=== PATIENT | female | born 1985 ===

== ENCOUNTER 2017-09-29 21:52 | Observation (INO) | payer MEDICAID, OTHER ==
[2017-09-29] MEDS ORDERED: Sodium Chloride 0.9% 1,000 ML IV SCH (22:15)
--- NOTE | 2017-09-29 22:19 | ED PDOC ---
HPI:STROKE - Time Time: 22:15 - Historian Historian: Patient - Chief Complaint Chief Complaint: other (syncope) - Onset Date: 09/29/17 Time: 21:00 - Timing Timing: Resolved - TPA Positive for Contraindication: Yes Reason tPA is not being Administered: NIH 0; no focal deficit - Notes: Notes:: Pt. was doing well today and then got bad new about her sister and then had multiple syncope episodes at home in the last 1 hr. Pt. states she feels better currently. Has mild headache, not worst in her life. Also light-headed mild. No nausea, vomit, chest pain, dyspnea, weakness, leg pain, numbness, tingles. Has had multiple syncope episodes in the past and she gets better from it on her own. Her blood pressure is 90 systolic normally. Denies drugs or etoh. Not suicidal or homicidal. NIHSS Stroke Scale - Date/Time Evaluation Performed Date Performed: 09/29/17 Time Performed: 22:10 When Was NIHSS Performed: Baseline - How Severe is the Stroke Level of Consciousness: 0=Alert LOC to Questions: 0=Both comments correct LOC to commands: 0=Obeys both correctly Best Gaze: 0=Normal Visual: 0=No visual loss Facial: 0=Normal Motor Arm - Left: 0=No drift Motor Arm - Right: 0=No drift Motor Leg - Left: 0=No drift Motor Leg - Right: 0=No drift Limb Ataxia: 0=Absent Sensory: 0=Normal Best Language: 0=No aphasia Dysarthia: 0=Normal articulation Extinction & Inattention (Neglect): 0=Normal, no object Score: 0 rTPA Inclusion/Exclusion - Refusal of Treatment Patient Refused Treatment: No - Inclusion Criteria for Altepase Patient is 18 years or Older: Yes The Clinical Diagnosis of Ischemic Stroke That is Causing a Potentially Disabling Neurological Deficit: No Time of Onset is Well Established to be Less Than 270 Minute Before Treatment Would Begin: Yes Risk/Benefit Discussed With Patient/Family Member Present: No Past Medical History Reviewed: Historical Data, Nursing Documentation, Vital Signs Vital Signs: Last Vital Signs Temp 98.9 F 09/29/17 21:55 Pulse 105 H 09/29/17 21:55 Resp 17 09/29/17 21:55 BP 119/75 09/29/17 21:55 Pulse Ox 100 09/29/17 21:55 - Medical History Other PMH: syncope - Surgical History Surgical History: No Surg Hx - Family History Family History: States: Unknown Family Hx - Living Arrangements Living Arrangements: With Family - Social History Alcohol: None Drugs: Denies - Allergies Allergies/Adverse Reactions: Allergies Allergy/AdvReac Type Severity Reaction Status Date / Time No Known Allergies Allergy Verified 09/29/17 21:57 Review of Systems ROS Statement: Except As Marked, All Systems Reviewed And Found Negative Neurological: Positive for: Headache, Dizziness Physical Exam - Reviewed Nursing Documentation Reviewed: Yes Vital Signs Reviewed: Yes - Physical Exam Appears: Positive for: Non-toxic, No Acute Distress Head Exam: Positive for: ATRAUMATIC, NORMAL INSPECTION, NORMOCEPHALIC Skin: Positive for: Normal Color, Warm, DRY Eye Exam: Positive for: EOMI, Normal appearance, PERRL ENT: Positive for: Normal ENT Inspection Neck: Positive for: Normal, Painless ROM Cardiovascular/Chest: Positive for: Regular Rate, Rhythm Respiratory: Positive for: CNT, Normal Breath Sounds Gastrointestinal/Abdominal: Positive for: Normal Exam, Soft. Negative for: Tenderness Back: Positive for: Normal Inspection. Negative for: L CVA Tenderness, R CVA Tenderness Extremity: Positive for: Normal ROM. Negative for: Tenderness, Pedal Edema Neurologic/Psych: Positive for: Alert, supervisor plate forming II-XII, Oriented. Negative for: Motor/Sensory Deficits, Aphasia, Facial Droop - Laboratory Results Result Diagrams: 09/29/17 22:31 09/29/17 22:31 Interpretation Of Abn Labs: no acute - ECG ECG: Positive for: Interpreted By Me, Viewed By Me ECG Rhythm: Positive for: Normal QRS, Normal ST Segment, Sinus Rhythm O2 Sat by Pulse Oximetry: 100 Pulse Ox Interpretation: Normal - Radiology X-Ray: Read By Radiologist X-Ray Interpretation: No Acute Disease - CT Scan/US ct Other Rad Studies (CT/US): Read By Radiologist Other Rad Interpretation: no acute - Progress ED Course And Treament: 2221: Pt. had 2 witnessed syncope episodes lasting 5 seconds approximately and pt. turned around and states she was fine. 2338: Pt. stable. Dizziness on sitting up. Fine when laying down. Will need admit for further evaluation. 2345: Stable. Spoke with Don for Dr. Diaz. Will admit tele obs. Disposition - Clinical Impression Clinical Impression: Syncope - Patient ED Disposition Is Patient to be Admitted: Yes Counseled Patient/Family Regarding: Studies Performed, Diagnosis - Disposition Disposition Time: 23:45 Condition: FAIR - Pt Status Changed To: Hospital Disposition Of: Observation - POA Present On Arrival: None
[2017-09-29 22:45] LABS: BASO # 0.1 K/uL (0.0-0.2); BASO % 0.5 % (0.0-2.0); EOS % 0.3 % (0.0-4.0); HEMOGLOBIN 13.4 g/dL (12.0-16.0); LYMPH # 2.3 K/uL (1.0-4.3); MEAN CELL VOLUME 92.8 fl (81.0-99.0); MEAN CORPUSCULAR HEMOGLOBIN 31.8 pg (27.0-31.0); MEAN CORPUSCULAR HGB CONC 34.3 g/dL (33.0-37.0); MEAN PLATELET VOLUME 8.3 fl (7.2-11.7); MONO # 0.8 K/uL (0.0-0.8); NEUT # 7.9 K/uL (1.8-7.0); NEUT % 71.2 % (50.0-75.0); NRBC % 0.1 % (0.0-0.0); RBC 4.21 Mil/uL (3.80-5.20); RED CELL DISTRIBUTION WIDTH 13.5 % (11.5-14.5); WHITE BLOOD COUNT 11.1 K/uL (4.8-10.8)
[2017-09-29 22:49] LABS: INR 1.1 (0.9-1.2); PROTHROMBIN TIME 12.4 Seconds (9.8-13.1)
[2017-09-29 22:57] LABS: ALB/GLOB RATIO 1.4 (1.0-2.1); ALBUMIN 4.8 g/dL (3.5-5.0); ALT/SGPT 38 U/L (9-52); AST/SGOT 30 U/L (14-36); BLOOD UREA NITROGEN 10 mg/dl (7-17); CALCIUM 9.3 mg/dL (8.4-10.2); GFR AFRICAN-AMERICAN > 60; GFR NON-AFRICAN AMERICAN > 60; HDL CHOLESTEROL 43 MG/DL (30-70)
[2017-09-29 23:08] LABS: LDL CHOLESTEROL 110 mg/dL (0-129)
--- NOTE | 2017-09-29 23:19 | CT ---
EXAM: CT Head Without Intravenous Contrast EXAM DATE/TIME: 09/29/2017 10:14 PM CLINICAL HISTORY: 31 years old, female; Signs and symptoms; Syncope and collapse TECHNIQUE: Axial computed tomography images of the head/brain without intravenous contrast. All CT scans at this facility use one or more dose reduction techniques, viz.: automated exposure control; ma/kV adjustment per patient size (including targeted exams where dose is matched to indication; i.e. head); or iterative reconstruction technique. Coronal and sagittal reformatted images were created and reviewed. COMPARISON: No relevant prior studies available. FINDINGS: BRAIN: Punctate calcification in the left basal ganglia, most likely physiologic in nature. No significant acute abnormality identified. No acute hemorrhage seen within the brain. No acute extra-axial fluid collections visualized. No evidence of significant mass effect within the brain. Normal whelan-white matter differentiation. VENTRICLES: No evidence of significant hydrocephalus. BONES/JOINTS: No acute fractures or other acute bony abnormality noted. SOFT TISSUES: No acute abnormality of the visualized soft tissues is seen. SINUSES: Visualized paranasal sinuses appear clear. MASTOID AIR CELLS: Mastoid air cells appear clear. IMPRESSION: - No acute findings seen within the brain. - See above for remaining findings.
--- NOTE | 2017-09-30 08:00 | RAD ---
HISTORY: syncope eval COMPARISON: No prior. FINDINGS: LUNGS: No active pulmonary disease. PLEURA: No significant pleural effusion identified, no pneumothorax apparent. CARDIOVASCULAR: Normal. OSSEOUS STRUCTURES: No significant abnormalities. VISUALIZED UPPER ABDOMEN: Normal. OTHER FINDINGS: None. IMPRESSION: No active disease. Concordant results with the preliminary interpretation rendered by the emergency department physician procedure.
[2017-09-30 08:01] LABS: BASO % 0.5 % (0.0-2.0); EOS # 0.1 K/uL (0.0-0.7); EOS % 0.8 % (0.0-4.0); HEMOGLOBIN 12.7 g/dL (12.0-16.0); LYMPH # 2.8 K/uL (1.0-4.3); LYMPH % 34.3 % (20.0-40.0); MEAN CELL VOLUME 92.8 fl (81.0-99.0); MEAN CORPUSCULAR HEMOGLOBIN 31.9 pg (27.0-31.0); MEAN CORPUSCULAR HGB CONC 34.4 g/dL (33.0-37.0); MEAN PLATELET VOLUME 8.1 fl (7.2-11.7); MONO # 0.8 K/uL (0.0-0.8); MONO % 9.9 % (0.0-10.0); NEUT # 4.5 K/uL (1.8-7.0); NEUT % 54.5 % (50.0-75.0); NRBC % 0.1 % (0.0-0.0); RBC 3.97 Mil/uL (3.80-5.20); RED CELL DISTRIBUTION WIDTH 13.4 % (11.5-14.5); WHITE BLOOD COUNT 8.2 K/uL (4.8-10.8)
--- NOTE | 2017-09-30 08:18 | CP.PCM.HP ---
History of Present Illness - History of Present Illness History of Present Illness: pt admitted for recurrent syncope episodes. states has had these on/off since she was 17-18 y/o. had full workout previously. at present bw noted. no f/c, n/v/d. imaging noted Present on Admission - Present on Admission Any Indicators Present on Admission: No Review of Systems - Neurological Neurological: As Per HPI, Syncope Past Patient History - Past Medical History & Family History Past Medical History?: No - Past Social History Smoking Status: Never Smoked - NEUROLOGICAL Hx Migraine: Yes - HEMATOLOGICAL/ONCOLOGICAL Hx AIDS: No Hx Human Immunodeficiency Virus (HIV): No - MUSCULOSKELETAL/RHEUMATOLOGICAL Hx Falls: No - PSYCHIATRIC Hx Substance Use: No - SURGICAL HISTORY Hx Cholecystectomy: Yes (10 years ago) - ANESTHESIA Hx Anesthesia: Yes Hx Anesthesia Reactions: No Hx Malignant Hyperthermia: No Has any member of the family had a problem w/ anesthesia?: No Meds Allergies/Adverse Reactions: Allergies Allergy/AdvReac Type Severity Reaction Status Date / Time No Known Allergies Allergy Verified 09/29/17 21:57 Physical Exam - Constitutional Appears: Well, Non-toxic, No Acute Distress - Head Exam Head Exam: ATRAUMATIC, NORMAL INSPECTION, NORMOCEPHALIC - Eye Exam Eye Exam: EOMI, Normal appearance, PERRL Pupil Exam: NORMAL ACCOMODATION, PERRL - ENT Exam ENT Exam: Mucous Membranes Moist, Normal Exam - Neck Exam Neck exam: Positive for: Normal Inspection - Respiratory Exam Respiratory Exam: Clear to Auscultation Bilateral, NORMAL BREATHING PATTERN - Cardiovascular Exam Cardiovascular Exam: REGULAR RHYTHM, RRR, +S1, +S2 - GI/Abdominal Exam GI & Abdominal Exam: Normal Bowel Sounds, Soft. absent: Tenderness - Extremities Exam Extremities exam: Positive for: full ROM, normal capillary refill, normal inspection, pedal pulses present - Back Exam Back exam: NORMAL INSPECTION - Neurological Exam Neurological exam: Alert, CN II-XII Intact, Normal Gait, Oriented x3, Reflexes Normal - Psychiatric Exam Psychiatric exam: Normal Affect, Normal Mood - Skin Skin Exam: Dry, Intact, Normal Color, Warm Results - Vital Signs Recent Vital Signs: Last Vital Signs Temp 98.2 F 09/30/17 07:56 Pulse 69 09/30/17 07:56 Resp 18 09/30/17 07:56 BP 98/63 L 09/30/17 07:56 Pulse Ox 98 09/30/17 07:56 - Labs Result Diagrams: 09/30/17 07:45 09/29/17 22:31 Labs: Laboratory Results - last 24 hr 09/29/17 09/29/17 09/29/17 22:21 22:31 22:31 WBC 11.1 H RBC 4.21 Hgb 13.4 Hct 39.0 MCV 92.8 MCH 31.8 H MCHC 34.3 RDW 13.5 Plt Count 285 MPV 8.3 Neut % (Auto) 71.2 Lymph % (Auto) 21.0 [place] % (Auto) 7.0 Eos % (Auto) 0.3 Baso % (Auto) 0.5 Neut # (Auto) 7.9 H Lymph # (Auto) 2.3 [place] # (Auto) 0.8 Eos # (Auto) 0.0 Baso # (Auto) 0.1 PT INR APTT Sodium 144 Potassium 3.9 Chloride 101 Carbon Dioxide 27 Anion Gap 20 BUN 10 Creatinine 0.6 L Est GFR ( Amer) > 60 Est GFR (Non-Af Amer) > 60 POC Glucose (mg/dL) 126 H Random Glucose 121 H Calcium 9.3 Total Bilirubin 0.3 AST 30 ALT 38 Alkaline Phosphatase 62 Troponin I < 0.0120 Total Protein 8.1 Albumin 4.8 Globulin 3.3 Albumin/Globulin Ratio 1.4 Triglycerides 136 Cholesterol 168 LDL Cholesterol Direct 110 HDL Cholesterol 43 Blood Type Blood Type Confirm Antibody Screen BBK History Checked 09/29/17 09/29/17 09/29/17 22:31 22:31 23:45 WBC RBC Hgb Hct MCV MCH MCHC RDW Plt Count MPV Neut % (Auto) Lymph % (Auto) [place] % (Auto) Eos % (Auto) Baso % (Auto) Neut # (Auto) Lymph # (Auto) [place] # (Auto) Eos # (Auto) Baso # (Auto) PT 12.4 INR 1.1 APTT 30.0 Sodium Potassium Chloride Carbon Dioxide Anion Gap BUN Creatinine Est GFR ( Amer) Est GFR (Non-Af Amer) POC Glucose (mg/dL) Random Glucose Calcium Total Bilirubin AST ALT Alkaline Phosphatase Troponin I Total Protein Albumin Globulin Albumin/Globulin Ratio Triglycerides Cholesterol LDL Cholesterol Direct HDL Cholesterol Blood Type A POSITIVE Blood Type Confirm A POSITIVE Antibody Screen Negative BBK History Checked No verified bt 09/30/17 07:45 WBC 8.2 RBC 3.97 Hgb 12.7 Hct 36.8 MCV 92.8 MCH 31.9 H MCHC 34.4 RDW 13.4 Plt Count 254 MPV 8.1 Neut % (Auto) 54.5 Lymph % (Auto) 34.3 [place] % (Auto) 9.9 Eos % (Auto) 0.8 Baso % (Auto) 0.5 Neut # (Auto) 4.5 Lymph # (Auto) 2.8 [place] # (Auto) 0.8 Eos # (Auto) 0.1 Baso # (Auto) 0.0 PT INR APTT Sodium Potassium Chloride Carbon Dioxide Anion Gap BUN Creatinine Est GFR ( Amer) Est GFR (Non-Af Amer) POC Glucose (mg/dL) Random Glucose Calcium Total Bilirubin AST ALT Alkaline Phosphatase Troponin I Total Protein Albumin Globulin Albumin/Globulin Ratio Triglycerides Cholesterol LDL Cholesterol Direct HDL Cholesterol Blood Type Blood Type Confirm Antibody Screen BBK History Checked Assessment & Plan (1) DVT prophylaxis Assessment and Plan: scd rosa e hose ambulation Status: Acute (2) Syncope Assessment and Plan: cardio/neuro likely vasovagal ?? stress rxn monitor on tele Status: Acute Decision To Admit - Pt Status Changed To: Hospital Disposition Of: Observation - . Bed Request Type: Telemetry Admitting Physician: Jerald Diaz
[2017-09-30 08:26] LABS: ALB/GLOB RATIO 1.4 (1.0-2.1); ALBUMIN 4.1 g/dL (3.5-5.0); ALT/SGPT 32 U/L (9-52); AST/SGOT 17 U/L (14-36); BLOOD UREA NITROGEN 10 mg/dl (7-17); CALCIUM 8.5 mg/dL (8.4-10.2); GFR AFRICAN-AMERICAN > 60; GFR NON-AFRICAN AMERICAN > 60
[2017-09-30 12:14] VITALS: RESP 20
[2017-09-30 15:39] VITALS: BP 100/62; PULSE 66; TEMP 98.3; O2SAT 94
--- NOTE | 2017-09-30 16:53 | CON ---
DATE: 09/30/2017 NEUROLOGY CONSULTATION CHIEF COMPLAINT: Syncope. HISTORY OF PRESENT ILLNESS: This is a 31-year-old woman with a history of syncopal episode in the past in her teens. She presented with another syncopal event where she got bad news about her sister who is on the bed in ICU and got lightheaded and panic and had some diaphoresis and had passed out few times. She is mildly dehydrated, otherwise, her blood pressures are stable. No palpitations at this time. No change in sense, vision, taste or smell. No focal weakness of the extremities. CAT scan of the head showed no acute intracranial abnormality. PAST MEDICAL HISTORY: History of syncope in the past. ALLERGIES: No known drug allergies. FAMILY HISTORY: Noncontributory. SOCIAL HISTORY: No illicit drug use, smoking or EtOH abuse. REVIEW OF SYSTEMS: A 14-point review of systems is negative except in the HPI. PHYSICAL EXAMINATION: GENERAL: The patient is seen up in bed in no acute distress. VITAL SIGNS: Temperature 98.3, pulse rate 66, blood pressure 100/60, respiratory rate 20, and oxygen saturation 100% on room air. HEENT: Head is atraumatic and normocephalic. PERRLA. Extraocular muscles are intact. NECK: Supple. No JVD. No adenopathy noted. CARDIOPULMONARY: S1 and S2, normal rate and rhythm. No murmurs, rubs or gallops. LUNGS: Clear to auscultation. No adventitious sounds. ABDOMEN: Soft, nontender, and nondistended. Bowel sounds are present. EXTREMITIES: No clubbing, no cyanosis. Peripheral pulses 2+ felt bilaterally. NEUROLOGIC: Cranial nerves II through XII intact. Motor exam: Moves all extremities equally. Toes are downgoing bilaterally. Sensory exam: Light touch, pinprick, proprioception, vibration are intact bilaterally. DTRs are 2+ throughout. Coordination: [id number] intact. Gait is deferred for now. LABORATORY DATA: Sodium is 142, potassium is 4.2, chloride is 106, carbon dioxide is 22, BUN is 10, creatinine of 0.5, and random glucose of 95. A1c of 5.8. ASSESSMENT: This is a 31-year-old woman with a history of syncope in the past who had a syncopal event after hearing some bad news hypoventilated and had some palpitations and diaphoresis and had passed out multiple times. She was mildly dehydrated and had low systolic blood pressures, otherwise, currently she is back to normal. She has no acute intracranial abnormalities on CAT scan. Neuro exam is nonfocal. Orthostatic vital signs are negative. RECOMMENDATIONS: At this time recommend: 1. Hydration. 2. Avoid subtle movements. 3. Relaxation techniques advised. 4. Clinically stable from my perspective for discharge. Dennis Skinner MD
--- NOTE | 2017-09-30 18:18 | CP.PCM.CON ---
History of Present Illness - History of Present Illness History of Present Illness: patient seen/examined. Sisi vasovagal syncope. I discussed conservative measures. no events on telemetry. stable for d/c Past Patient History - Past Medical History & Family History Past Medical History?: No - Past Social History Smoking Status: Never Smoked - NEUROLOGICAL Hx Migraine: Yes - HEMATOLOGICAL/ONCOLOGICAL Hx AIDS: No Hx Human Immunodeficiency Virus (HIV): No - MUSCULOSKELETAL/RHEUMATOLOGICAL Hx Falls: No - PSYCHIATRIC Hx Substance Use: No - SURGICAL HISTORY Hx Cholecystectomy: Yes (10 years ago) - ANESTHESIA Hx Anesthesia: Yes Hx Anesthesia Reactions: No Hx Malignant Hyperthermia: No Has any member of the family had a problem w/ anesthesia?: No Meds Home Medications: Home Medication List Medication Instructions Recorded Confirmed Type Ibuprofen [Motrin Tab] 600 mg PO Q8 PRN tab 09/30/17 Rx Allergies/Adverse Reactions: Allergies Allergy/AdvReac Type Severity Reaction Status Date / Time No Known Allergies Allergy Verified 09/29/17 21:57 - Medications Medications: Current Medications Acetaminophen (Tylenol 325mg Tab) 650 mg PO Q4 PRN PRN Reason: Headache Last Admin: 09/30/17 08:29 Dose: 650 mg Ascorbic Acid (Vitamin C 500 Mg Tab) 1,000 mg PO DAILY [facility] Last Admin: 09/30/17 09:14 Dose: 1,000 mg Sodium Chloride (Sodium Chloride 0.9%) 1,000 mls @ 1,000 mls/hr IV .Q1H GLEN Last Admin: 09/30/17 00:23 Dose: 1,000 mls/hr Ibuprofen (Motrin Tab) 600 mg PO Q8 PRN PRN Reason: Headache Ketorolac Tromethamine (Toradol) 30 mg IVP Q6 PRN PRN Reason: Other Last Admin: 09/30/17 09:06 Dose: 30 mg Results - Vital Signs Recent Vital Signs: Last Vital Signs Temp 98.3 F 09/30/17 15:38 Pulse 66 09/30/17 15:38 Resp 20 09/30/17 15:38 BP 100/62 09/30/17 15:38 Pulse Ox 94 L 09/30/17 15:38 - Labs Result Diagrams: 09/30/17 07:45 09/30/17 07:45 Labs: Laboratory Results - last 24 hr 09/29/17 09/29/17 09/29/17 22:21 22:31 22:31 WBC 11.1 H RBC 4.21 Hgb 13.4 Hct 39.0 MCV 92.8 MCH 31.8 H MCHC 34.3 RDW 13.5 Plt Count 285 MPV 8.3 Neut % (Auto) 71.2 Lymph % (Auto) 21.0 [place] % (Auto) 7.0 Eos % (Auto) 0.3 Baso % (Auto) 0.5 Neut # (Auto) 7.9 H Lymph # (Auto) 2.3 [place] # (Auto) 0.8 Eos # (Auto) 0.0 Baso # (Auto) 0.1 PT INR APTT D-Dimer, Quantitative Sodium 144 Potassium 3.9 Chloride 101 Carbon Dioxide 27 Anion Gap 20 BUN 10 Creatinine 0.6 L Est GFR ( Amer) > 60 Est GFR (Non-Af Amer) > 60 POC Glucose (mg/dL) 126 H Random Glucose 121 H Hemoglobin A1c Calcium 9.3 Total Bilirubin 0.3 AST 30 ALT 38 Alkaline Phosphatase 62 Troponin I < 0.0120 Total Protein 8.1 Albumin 4.8 Globulin 3.3 Albumin/Globulin Ratio 1.4 Triglycerides 136 Cholesterol 168 LDL Cholesterol Direct 110 HDL Cholesterol 43 Blood Type Blood Type Confirm Antibody Screen BBK History Checked 09/29/17 09/29/17 09/29/17 22:31 22:31 22:31 WBC RBC Hgb Hct MCV MCH MCHC RDW Plt Count MPV Neut % (Auto) Lymph % (Auto) [place] % (Auto) Eos % (Auto) Baso % (Auto) Neut # (Auto) Lymph # (Auto) [place] # (Auto) Eos # (Auto) Baso # (Auto) PT 12.4 INR 1.1 APTT 30.0 D-Dimer, Quantitative Sodium Potassium Chloride Carbon Dioxide Anion Gap BUN Creatinine Est GFR ( Amer) Est GFR (Non-Af Amer) POC Glucose (mg/dL) Random Glucose Hemoglobin A1c 5.8 Calcium Total Bilirubin AST ALT Alkaline Phosphatase Troponin I Total Protein Albumin Globulin Albumin/Globulin Ratio Triglycerides Cholesterol LDL Cholesterol Direct HDL Cholesterol Blood Type A POSITIVE Blood Type Confirm Antibody Screen Negative BBK History Checked No verified bt 09/29/17 09/30/17 09/30/17 23:45 07:45 07:45 WBC 8.2 RBC 3.97 Hgb 12.7 Hct 36.8 MCV 92.8 MCH 31.9 H MCHC 34.4 RDW 13.4 Plt Count 254 MPV 8.1 Neut % (Auto) 54.5 Lymph % (Auto) 34.3 [place] % (Auto) 9.9 Eos % (Auto) 0.8 Baso % (Auto) 0.5 Neut # (Auto) 4.5 Lymph # (Auto) 2.8 [place] # (Auto) 0.8 Eos # (Auto) 0.1 Baso # (Auto) 0.0 PT INR APTT D-Dimer, Quantitative Sodium 142 Potassium 4.2 Chloride 106 Carbon Dioxide 22 Anion Gap 18 BUN 10 Creatinine 0.5 L Est GFR ( Amer) > 60 Est GFR (Non-Af Amer) > 60 POC Glucose (mg/dL) Random Glucose 95 Hemoglobin A1c Calcium 8.5 Total Bilirubin 0.5 AST 17 ALT 32 Alkaline Phosphatase 53 Troponin I < 0.0120 Total Protein 7.1 Albumin 4.1 Globulin 3.0 Albumin/Globulin Ratio 1.4 Triglycerides Cholesterol LDL Cholesterol Direct HDL Cholesterol Blood Type Blood Type Confirm A POSITIVE Antibody Screen BBK History Checked 09/30/17 09/30/17 15:45 15:45 WBC RBC Hgb Hct MCV MCH MCHC RDW Plt Count MPV Neut % (Auto) Lymph % (Auto) [place] % (Auto) Eos % (Auto) Baso % (Auto) Neut # (Auto) Lymph # (Auto) [place] # (Auto) Eos # (Auto) Baso # (Auto) PT INR APTT D-Dimer, Quantitative 168 Sodium Potassium Chloride Carbon Dioxide Anion Gap BUN Creatinine Est GFR ( Amer) Est GFR (Non-Af Amer) POC Glucose (mg/dL) Random Glucose Hemoglobin A1c Calcium Total Bilirubin AST ALT Alkaline Phosphatase Troponin I < 0.0120 Total Protein Albumin Globulin Albumin/Globulin Ratio Triglycerides Cholesterol LDL Cholesterol Direct HDL Cholesterol Blood Type Blood Type Confirm Antibody Screen BBK History Checked
--- NOTE | 2017-10-01 12:27 | CARD ---
APPROVED REPORT EKG Measurement Heart [id number] <Conclusion> Normal sinus rhythm Normal ECG
--- NOTE | 2017-10-01 18:32 | CP.PCM.DIS ---
Provider - Provider Date of Admission: 09/29/17 23:45 Attending physician: Jerald Diaz MD Time Spent in preparation of Discharge (in minutes): 15 Diagnosis - Discharge Diagnosis (1) DVT prophylaxis Status: Acute (2) Syncope Status: Acute Hospital Course - Lab Results Lab Results: Most Recent Lab Values WBC 8.2 K/uL (4.8-10.8) 09/30/17 07:45 RBC 3.97 Mil/uL (3.80-5.20) 09/30/17 07:45 Hgb 12.7 g/dL (12.0-16.0) 09/30/17 07:45 Hct 36.8 % (34.0-47.0) 09/30/17 07:45 MCV 92.8 fl (81.0-99.0) 09/30/17 07:45 MCH 31.9 pg (27.0-31.0) H 09/30/17 07:45 MCHC 34.4 g/dL (33.0-37.0) 09/30/17 07:45 RDW 13.4 % (11.5-14.5) 09/30/17 07:45 Plt Count 254 K/uL (130-400) 09/30/17 07:45 MPV 8.1 fl (7.2-11.7) 09/30/17 07:45 Neut % (Auto) 54.5 % (50.0-75.0) 09/30/17 07:45 Lymph % (Auto) 34.3 % (20.0-40.0) 09/30/17 07:45 [place] % (Auto) 9.9 % (0.0-10.0) 09/30/17 07:45 Eos % (Auto) 0.8 % (0.0-4.0) 09/30/17 07:45 Baso % (Auto) 0.5 % (0.0-2.0) 09/30/17 07:45 Neut # (Auto) 4.5 K/uL (1.8-7.0) 09/30/17 07:45 Lymph # (Auto) 2.8 K/uL (1.0-4.3) 09/30/17 07:45 [place] # (Auto) 0.8 K/uL (0.0-0.8) 09/30/17 07:45 Eos # (Auto) 0.1 K/uL (0.0-0.7) 09/30/17 07:45 Baso # (Auto) 0.0 K/uL (0.0-0.2) 09/30/17 07:45 PT 12.4 Seconds (9.8-13.1) 09/29/17 22:31 INR 1.1 (0.9-1.2) 09/29/17 22:31 APTT 30.0 Seconds (25.6-37.1) 09/29/17 22:31 D-Dimer, Quantitative 168 ng/mlDDU (0-230) 09/30/17 15:45 Sodium 142 mmol/l (132-148) 09/30/17 07:45 Potassium 4.2 MMOL/L (3.6-5.0) 09/30/17 07:45 Chloride 106 mmol/L (98-107) 09/30/17 07:45 Carbon Dioxide 22 mmol/L (22-30) 09/30/17 07:45 Anion Gap 18 (10-20) 09/30/17 07:45 BUN 10 mg/dl (7-17) 09/30/17 07:45 Creatinine 0.5 mg/dl (0.7-1.2) L 09/30/17 07:45 Est GFR ( Amer) > 60 09/30/17 07:45 Est GFR (Non-Af Amer) > 60 09/30/17 07:45 POC Glucose (mg/dL) 126 mg/dL (65-110) H 09/29/17 22:21 Random Glucose 95 mg/dL (65-105) 09/30/17 07:45 Hemoglobin A1c 5.8 % (4.2-6.5) 09/29/17 22:31 Calcium 8.5 mg/dL (8.4-10.2) 09/30/17 07:45 Total Bilirubin 0.5 mg/dl (0.2-1.3) 09/30/17 07:45 AST 17 U/L (14-36) 09/30/17 07:45 ALT 32 U/L (9-52) 09/30/17 07:45 Alkaline Phosphatase 53 U/L (38-126) 05/09/18 07:45 Troponin I < 0.0120 ng/mL (0.00-0.120) 09/30/17 15:45 Total Protein 7.1 G/DL (6.3-8.2) 09/30/17 07:45 Albumin 4.1 g/dL (3.5-5.0) 09/30/17 07:45 Globulin 3.0 gm/dL (2.2-3.9) 09/30/17 07:45 Albumin/Globulin Ratio 1.4 (1.0-2.1) 09/30/17 07:45 Triglycerides 136 mg/DL (0-149) 09/29/17 22:31 Cholesterol 168 mg/dL (0-199) 09/29/17 22:31 LDL Cholesterol Direct 110 mg/dL (0-129) 09/29/17 22:31 HDL Cholesterol 43 MG/DL (30-70) 09/29/17 22:31 Blood Type A POSITIVE 09/29/17 22:31 Blood Type Confirm A POSITIVE 09/29/17 23:45 Antibody Screen Negative 09/29/17 22:31 BBK History Checked No verified bt 09/29/17 22:31 - Hospital Course Hospital Course: cardio/neuro consults trops Discharge Exam - Head Exam Head Exam: ATRAUMATIC, NORMAL INSPECTION, NORMOCEPHALIC Discharge Plan - Follow Up Plan Condition: FAIR Disposition: HOME/ ROUTINE Instructions: Syncope (Fainting) (DC) Additional Instructions: follow with pmd in 2-3 days final dx-vasovagal syncope cleared by cardio/neuro f/u rmg 2 days, rted prn, meds per med rec hydration/stress reduction Referrals: Jerald Diaz MD [Staff Provider] -
== END 2017-09-30 19:15 | disposition home or self-care (01) ==
LOC: H.ER 21:52 → H.ERHOLD 23:45 → H.TEL 09-30 02:00
PROVIDERS: ADMIT Family Medicine; ATTEND Family Medicine
DX: R55 Syncope and collapse (principal); E86.0 Dehydration; G43.909 Migraine, unspecified, not intractable, without status migrainosus; R00.2 Palpitations
CPT/HCPCS: 36415; 70450; 71045; 80053; 80061; 81025; 82948; 83036; 84484; 85025; 85378; 85610; 85730; 86850; 86900; G0378; J1885; J7040